=== PATIENT | female | born 1975 | race African-American/Black ===

== ENCOUNTER 2016-06-02 23:06 | Emergency (ER) | payer OTHER ==
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
[~2016-06-02 23:06] MED LIST: AMOXICILLIN875 MG PO; CLARITIN R10 MG REDI PO; IBUPROFEN800 MG PO
== END 2016-06-03 00:54 | disposition home or self-care (01) ==
LOC: CFTX 23:06
DX: S80.02XA Contusion of left knee, initial encounter (principal); S60.212A Contusion of left wrist, initial encounter; V43.52XA Car driver injured in collision with other type car in traffic accident, initial encounter; Y92.410 Unspecified street and highway as the place of occurrence of the external cause
CPT/HCPCS: 29530; 73110; 73562; 99283